=== PATIENT | male | born 1930 | race Caucasian/White ===

== ENCOUNTER 2021-11-09 10:38 | Observation (INO) ==
[2021-11-09] MEDS ORDERED: SODIUM CHLORIDE 0.9% 1000ML 1,000 ML IV SCH (11:00)
[2021-11-09 11:17] LABS: Basophils # (auto) 0.02 K/uL (0-0.2); Basophils % (auto) 0.3 %; Eosinophils # (auto) 0.11 K/uL (0-0.5); Eosinophils % (auto) 1.8 %; Hematocrit (blood only) 33.1 % (42-52); Hemoglobin 10.6 g/dL (14.0-18.0); Immature Granulocytes # (auto) 0.02 K/uL (0.00-0.02); Immature Granulocytes % (auto) 0.3 %; Lymphocytes # (auto) 1.26 K/uL (1.2-3.4); Lymphocytes % (auto) 20.2 %; Mean Corpuscular Hemoglobin 32.2 pg (25-34); Mean Corpuscular Volume 100.6 fL (80-100); Mean Platelet Volume 9.5 fL (7.4-10.4); Monocytes # (auto) 0.62 K/uL (0.11-0.59); Monocytes % (auto) 9.9 %; Neutrophils # (auto) 4.22 K/uL (1.4-6.5); Neutrophils % (auto) 67.5 %; Platelet Count 207 K/uL (130-400); RDW Coefficient of Variation 15.1 % (11.5-14.5); RDW Standard Deviation 54.9 fL (36.4-46.3); Red Blood Count 3.29 M/uL (4.7-6.1); White Blood Count 6.25 K/uL (4.8-10.8)
--- NOTE | 2021-11-09 11:19 | XRay Report ---
XR chest 1V portable CLINICAL HISTORY: weakness. Evaluate cardiopulmonary status COMPARISON STUDY: No previous studies for comparison. TECHNIQUE: 1 view of the chest FINDINGS: Single frontal view of the chest demonstrates the cardiomediastinal silhouette to be within normal li mits. The aorta is atherosclerotic and ectatic. The lungs are clear of alveolar opacities. There is n o evidence for pleural effusion. There is no evidence for vascular congestion. There is no acute osse ous pathology. IMPRESSION: 1. No acute cardiopulmonary disease. ACT 112: Negative or not required by law. Electronically signed by: Major Ames M.D. 11/09/2021 11:17 AM
[2021-11-09 11:30] LABS: Albumin Globulin Ratio 1.1 (0.9-2); Albumin Level 3.5 gm/dl (3.4-5.0); BUN Creatinine Ratio 29.7 (10-20); Bilirubin,Total 0.9 mg/dl (0.2-1.0); Calcium 8.3 mg/dl (8.5-10.1); Est GFR (African American) 67.9 ml/min; Est GFR (Non-African American) 58.6 ml/min; Globulin 3.2 gm/dl (2.5-4.0); Magnesium 2.4 mg/dl (1.7-2.4); Potassium 4.2 mmol/L (3.5-5.1); Total Protein 6.7 gm/dl (6.0-8.3)
[2021-11-09 11:34] LABS: Troponin I High Sensitivity 6.2 pg/ml (0-20)
[2021-11-09 13:12] LABS: Appearance Urine Clear (Clear); Bilirubin Urine Negative (Negative); Blood Urine Negative (Negative); Color Urine Yellow; Glucose Urine UA Negative (Negative); Ketones Urine Negative (Negative); Leukocyte Esterase Urine Negative (Negative); Nitrite Urine Negative (Negative); Protein Urine Negative (Negative); Specific Gravity Urine 1.018 (1.000-1.030); Urobilinogen Urine Negative (Negative); pH Urine 7.5 (4.5-7.5)
--- NOTE | 2021-11-09 13:13 | CT Scan Report ---
CT OF THE HEAD WITHOUT CONTRAST CLINICAL HISTORY: weakness COMPARISON STUDY: No previous studies for comparison. CT DOSE: 537.48 mGy.cm TECHNIQUE: Helical axial images of the head were obtained without IV contrast. Automated exposure con trol was utilized for the study. A dose lowering technique was utilized adhering to the principles o f ALARA. FINDINGS: No acute intracranial hemorrhage, midline shift or mass effect is present. Mild ventricular dilatation is due to atrophy. Basal cisterns are patent. There are nodular axial collections. White matter hypodensity suggests small vessel disease. A 1.7 cm superior left frontal lobe hypodense focus on axial image 23 of 28 is noted. IMPRESSION: 1. No acute intracranial hemorrhage or mass effect. 2. 1.7 cm superior left frontal lobe hypodense focus. This represents a small subacute to chronic inf arct. ACT 112: Negative or not required by law. Electronically signed by: Alex Barrios M.D. 11/09/2021 1:12 PM
--- NOTE | 2021-11-09 13:57 | History & Physical Report ---
Date of Service November 09, 2021 Assessment & Plan (1) Weakness: Plan: Presents with generalized weakness worsening for the last month, low appetite, severe constipation, and urinary frequency and incontinence CT head in the ER with 1.7 cm hypodensity left superior frontal lobe consistent with subacute to chronic infarct With mild anemia, elevated alkaline phosphatase abnormal on laboratory work-up. Urinalysis negative, no fevers, COVID-19 negative. TSH normal Nonfocal neurological exam Did have an episode of syncope 2 weeks ago-could be orthostasis from increased dose of FLomax as orthostatics are borderline positive here Doubtful that the stroke seen on CT head is causing all of his ongoing issues. -Bring in on observation to medical floor with telemetry for arrhythmia monitoring -check brain MRI with contrast -complete stroke workup with CTA head/neck, ECHO with bubble study, HgbA1C, lipid panel, PT/OT consults -treat constipation as below -check PSA, check CT abd/pel-could have prostate CA -check Lyme, B12 (2) Elevated alkaline phosphatase level: Plan: Alkaline phosphatase elevated at 275 Given that he is having worsening urinary symptoms and elevated alkaline phosphatase, it is possible that he has bony disease from metastatic prostate cancer Could also be from hepatic steatosis Check PSA Follow LFTs in the morning Checking liver imaging with CT abd/pel; this will also looks for bony mets (3) Constipation: Plan: severe, ongoing for 1 month which is new for him. Associated with lower abd pain and rectal pain, nausea Having BM q5-6 days iwth help of MOM -checking CT abd/pel -start Miralax bid, senna/docusate once daily, Mag citrate and Bisacodyl SC as needed (4) CVA (cerebral vascular accident): Plan: History of such affecting right sided vision Now here with 1.7 cm left frontal lobe hypodensity on CT head representing subacute to chronic infarct Ensuing stroke work-up as above Continue home aspirin 81mg daily -check CTA H/N, Brain MRI, ECHO -BPs controlled check lipid panel an dchange pravastatin to high intensity statin-atorva 40mg- would only go back to pravastatin if TChol< 100 check A1C (5) Lower urinary tract symptoms: Plan: Worsening for several weeks as per note from primary care physician 1 month ago Could be from BPH versus prostate cancer Check PSA Check CT abd/pel given severe new constipation and urinary sxs Continue tamsulosin Bladder scan and straight cath as needed for PVR>400mL He was scheduled to [facility] on 11/08 for the first time but cancelled due to not feeling well (6) Anemia, macrocytic: Plan: Hemoglobin low at 10.6, MCV high at 100 Check B12 and folate Follow CBC (7) GERD (gastroesophageal reflux disease): Plan: Continue home Pepcid No acute issues (8) HTN (hypertension), benign: Plan: Blood pressures are controlled here Continue home metoprolol (9) Hyperlipidemia: Plan: No acute issues Recommend high intensity statin for history of stroke checking lipid panel in AM (10) Carotid artery stenosis: Plan: Diagnosed after having right sided field of vision loss, CVA unknwon % but no surgery needed -checking CTA neck/head as above (11) Acquired hypothyroidism: Plan: TSH here is normal Continue home levothyroxine Plan: DVT Prophylaxis-SCDs, Lovenox SQ Dispo-bring in for observation to med-tele. PT/OT consults placed. Pt very anxious to get home as soon as possible. Family encouraging him to stay because he has been very resistant to getting things checked out from a medical perspective. He is, however, wanting some answers as to why he is feeling so poorly but has already resolved himself to the fact that his end of life is in the near future (as he has sensed this). DNR/DNI Discussed his care with his and 2 daughters at the bedside History of Present Illness Chief Complaint: Weakness, constipation Primary Care Provider: Jef Menezes, This patient is an 89-year-old male with a history of CVA, BERNARD, HTN, hyperlipidemia, GERD, hypothyroidism, former smoker, lower urinary tract symptoms, and colon adenoma who presents to the ER with generalized weakness for the last several weeks along with worsening urinary incontinence. He was placed on amoxicillin for 5-day course as an outpatient for urinary tract infection by his PCP a few weeks ago, but had no improvement. He then called back in and was prescribed nitrofurantoin over the phone again for continued urinary symptoms. The patient's biggest complaint is severe constipation for the last month-he is only able to have a bowel movement every 5 to 6 days after taking milk of magnesia. There are times when he is straining to have a bowel movement where he has significant lower abdominal pain and gets very nauseated and feels like he will vomit. There has been no blood in the stool no black tarry stools. He also had an episode where he was standing at his bathroom sink and out of nowhere passed out and ended up on the floor. His family had to call EMS to get him back up and he refused admission at that time. He has reported some occasional heart palpitations while laying down in bed, but denies chest pains. He reports that his quality of life has been so terrible for the last month that he presumes he probably has cancer and would welcome if it came. He has not had any fevers or chills. He has had a very low appetite for the last month and is not eating much. In the ER, his laboratory work-up was significant for an elevated alkaline phosphatase at 275, mildly elevated BUN at 33, as well as mild anemia with a hemoglobin of 10.6. His urinalysis was normal and COVID-[address] of the head showed a 1.7 cm hypodense lesion in the left frontal lobe consistent with subacute to chronic infarct. A chest x-ray was normal. A troponin was negative and an ECG showed sinus rhythm with PACs and LAFB unchanged from previous. Vital signs are normal. He will be brought in on observation for further work-up for weakness and stroke, as well as for evaluation of his urinary frequency and severe constipation. Allergies Allergy/AdvReac Type Severity Reaction Status Date / Time No Known Allergies Allergy Unknown Unverified 07/28/10 10:18 Home Medications Medication Instructions Recorded Confirmed Type aspirin 81 mg tablet 81 mg PO DAILY 11/09/21 11/09/21 History levothyroxine 50 mcg tablet 50 mcg PO QAM 11/09/21 11/09/21 History metoprolol succinate 50 mg 50 mg PO QAM 11/09/21 11/09/21 History tablet,extended release 24 hr nitrofurantoin 100 mg PO BID 11/09/21 11/09/21 History monohydrate/macrocrystals 100 mg capsule pravastatin 40 mg tablet 40 mg PO HS 11/09/21 11/09/21 History tamsulosin 0.4 mg capsule 0.8 mg PO DAILY 11/09/21 11/09/21 History Past Med/Surg History Medical History (Updated 11/09/21 @ 15:29 by Anitha Cole MD) Anemia, macrocytic Carotid artery stenosis Colon adenoma CVA (cerebral vascular accident) GERD (gastroesophageal reflux disease) HTN (hypertension), benign Hyperlipidemia Lower urinary tract symptoms Restless leg syndrome Rosacea Spinal stenosis Surgical History History of hernia repair History of tonsillectomy Family History (Updated 11/09/21 @ 15:24 by Anitha Cole MD) Brother Cancer Multiple siblings with stomach cancer Diabetes Mother Cancer Father Prostate cancer Social History (Updated 11/09/21 @ 15:25 by Anitha Cole MD) Smoking Status: Former smoker Tobacco Type: Cigarettes Hx Alcohol Use: No Hx Substance Use: No Preferred Language: Sinhala Feels Safe at Home: Yes Review of Systems Review of Systems: All systems reviewed & are unremarkable except as noted in HPI & below No fevers, no headaches, no changes in vision. Has permanent loss of vision in the right lower field of vision. No chest pains or SOB. No back pain or joint pains. +Fatigue Physical Exam Constitutional: WD/WN, vitals as above Eyes: PERRL, conjunctivae normal, anicteric sclerae EOM intact bilaterally ENMT: external ear and nose normal, oropharynx normal Neck: trachea midline, no thyromegaly Respiratory: normal respiratory effort, lungs clear to auscultation Cardiovascular: RRR, no murmur, no edema Vessels: no carotid bruit Chest (Breasts): Chest: normal inspection of chest Gastrointestinal (Abdomen): normal bowel sounds, soft, nontender, no hepatosplenomegaly Musculoskeletal: Extremities: extremities normal to inspection; no cyanosis and no clubbing Skin: no rashes, warm and dry Neurologic: CN's II-XI intact bilaterally, moves all extremities and awake; + abnormal deep tendon reflexes (1+ throughout), no focal motor deficits (5/5 strength throughout) and not confused Speech / Cognition: normal speech, no expressive aphasia and normal cognition Psychiatric: A+Ox3, euthymic affect Lymphatic: no lymphedema Results & Data Results & Data ([facility]) Vital Signs (Past 12 Hours) Vital Signs Temp Pulse Pulse Resp BP BP Pulse Ox 11/09/21 13:49 79 18 102/61 98 11/09/21 12:48 79 18 103/58 L 98 11/09/21 11:44 86 20 99/60 L 98 11/09/21 10:45 94 H 20 98 11/09/21 10:41 36.7 C 94 H 20 109/66 98 Laboratory Results 11/09/21 11/09/21 11/09/21 Range/Units 12:57 10:45 10:45 WBC (4.8-10.8) K/uL RBC (4.7-6.1) M/uL Hgb (14.0-18.0) g/dL Hct (42-52) % MCV (80-100) fL MCH (25-34) pg MCHC (32-36) g/dL RDW Std Deviation (36.4-46.3) fL RDW Coeff of [place] (11.5-14.5) % Plt Count (130-400) K/uL MPV (7.4-10.4) fL Immature Gran % (Auto) % Neut % (Auto) % Lymph % (Auto) % Forrest % (Auto) % Eos % (Auto) % Baso % (Auto) % Neut # (Auto) (1.4-6.5) K/uL Lymph # (Auto) (1.2-3.4) K/uL Forrest # (Auto) (0.11-0.59) K/uL Eos # (Auto) (0-0.5) K/uL Baso # (Auto) (0-0.2) K/uL Immature Gran # (Auto) (0.00-0.02) K/uL Sodium (136-145) mmol/L Potassium (3.5-5.1) mmol/L Chloride (98-107) mmol/L Carbon Dioxide (21-32) mmol/L Anion Gap (3-11) BUN (6-23) mg/dl Creatinine (0.6-1.4) mg/dl Est Cr Clr Drug Dosing ml/min Est GFR ( Amer) ml/min Est GFR (Non-Af Amer) ml/min BUN/Creatinine Ratio (10-20) Glucose (70-99(Fasting)) mg/dl Calcium (8.5-10.1) mg/dl Magnesium (1.7-2.4) mg/dl Total Bilirubin (0.2-1.0) mg/dl AST (13-39) U/L ALT (7-52) U/L Alkaline Phosphatase (34-104) U/L Troponin I High Sens (0-20) pg/ml Total Protein (6.0-8.3) gm/dl Albumin (3.4-5.0) gm/dl Globulin (2.5-4.0) gm/dl Albumin/Globulin Ratio (0.9-2) TSH 2.772 (0.300-4.500) uIu/ml Urine Color Yellow Urine Appearance Clear (Clear) Urine pH 7.5 (4.5-7.5) Ur Specific [place] 1.018 (1.000-1.030) Urine Protein Negative (Negative) Urine Glucose (UA) Negative (Negative) Urine Ketones Negative (Negative) Urine Blood Negative (Negative) Urine Nitrite Negative (Negative) Urine Bilirubin Negative (Negative) Urine Urobilinogen Negative (Negative) Ur Leukocyte Esterase Negative (Negative) SARS-CoV-2, RNA, NAAT NEGATIVE (NEGATIVE) 11/09/21 11/09/21 Range/Units 10:45 10:45 WBC 6.25 (4.8-10.8) K/uL RBC 3.29 L (4.7-6.1) M/uL Hgb 10.6 L (14.0-18.0) g/dL Hct 33.1 L (42-52) % MCV 100.6 H (80-100) fL MCH 32.2 (25-34) pg MCHC 32.0 (32-36) g/dL RDW Std Deviation 54.9 H (36.4-46.3) fL RDW Coeff of [place] 15.1 H (11.5-14.5) % Plt Count 207 (130-400) K/uL MPV 9.5 (7.4-10.4) fL Immature Gran % (Auto) 0.3 % Neut % (Auto) 67.5 % Lymph % (Auto) 20.2 % Forrest % (Auto) 9.9 % Eos % (Auto) 1.8 % Baso % (Auto) 0.3 % Neut # (Auto) 4.22 (1.4-6.5) K/uL Lymph # (Auto) 1.26 (1.2-3.4) K/uL Forrest # (Auto) 0.62 H (0.11-0.59) K/uL Eos # (Auto) 0.11 (0-0.5) K/uL Baso # (Auto) 0.02 (0-0.2) K/uL Immature Gran # (Auto) 0.02 (0.00-0.02) K/uL Sodium 137 (136-145) mmol/L Potassium 4.2 (3.5-5.1) mmol/L Chloride 105 (98-107) mmol/L Carbon Dioxide 25 (21-32) mmol/L Anion Gap 7 (3-11) BUN 33 H (6-23) mg/dl Creatinine 1.11 (0.6-1.4) mg/dl Est Cr Clr Drug Dosing 51.0 ml/min Est GFR ( Amer) 67.9 ml/min Est GFR (Non-Af Amer) 58.6 ml/min BUN/Creatinine Ratio 29.7 H (10-20) Glucose 114 H (70-99(Fasting)) mg/dl Calcium 8.3 L (8.5-10.1) mg/dl Magnesium 2.4 (1.7-2.4) mg/dl Total Bilirubin 0.9 (0.2-1.0) mg/dl AST 33 (13-39) U/L ALT 41 (7-52) U/L Alkaline Phosphatase 275 H (34-104) U/L Troponin I High Sens 6.2 (0-20) pg/ml Total Protein 6.7 (6.0-8.3) gm/dl Albumin 3.5 (3.4-5.0) gm/dl Globulin 3.2 (2.5-4.0) gm/dl Albumin/Globulin Ratio 1.1 (0.9-2) TSH (0.300-4.500) uIu/ml Urine Color Urine Appearance (Clear) Urine pH (4.5-7.5) Ur Specific [place] (1.000-1.030) Urine Protein (Negative) Urine Glucose (UA) (Negative) Urine Ketones (Negative) Urine Blood (Negative) Urine Nitrite (Negative) Urine Bilirubin (Negative) Urine Urobilinogen (Negative) Ur Leukocyte Esterase (Negative) SARS-CoV-2, RNA, NAAT (NEGATIVE) Diagnostic Findings Chest X-Ray 11/09/21 10:58 XR chest 1V portable CLINICAL HISTORY: weakness. Evaluate cardiopulmonary status COMPARISON STUDY: No previous studies for comparison. TECHNIQUE: 1 view of the chest FINDINGS: Single frontal view of the chest demonstrates the cardiomediastinal silhouette to be within normal limits. The aorta is atherosclerotic and ectatic. The lungs are clear of alveolar opacities. There is no evidence for pleural effusion. There is no evidence for vascular congestion. There is no acute osseous pathology. IMPRESSION: 1. No acute cardiopulmonary disease. ACT 112: Negative or not required by law. Electronically signed by: Major Ames M.D. 11/09/2021 11:[address] 11/09/21 12:36 CT OF THE HEAD WITHOUT CONTRAST CLINICAL HISTORY: weakness COMPARISON STUDY: No previous studies for comparison. CT DOSE: 537.48 mGy.cm TECHNIQUE: Helical axial images of the head were obtained without IV contrast. Automated exposure control was utilized for the study. A dose lowering technique was utilized adhering to the principles of ALARA. FINDINGS: No acute intracranial hemorrhage, midline shift or mass effect is present. Mild ventricular dilatation is due to atrophy. Basal cisterns are patent. There are nodular axial collections. White matter hypodensity suggests small vessel disease. A 1.7 cm superior left frontal lobe hypodense focus on axial image 23 of 28 is noted. IMPRESSION: 1. No acute intracranial hemorrhage or mass effect. 2. 1.7 cm superior left frontal lobe hypodense focus. This represents a small subacute to chronic infarct. ACT 112: Negative or not required by law. Electronically signed by: Alex Barrios M.D. 11/09/2021 1:12 PM ECG Additional Comments: ECG on 11/09/2021 at 10:41 AM with sinus rhythm with PACs, rate 97, left anterior fascicular block, nonspecific ST abnormality in anterior leads, unchanged from previous Code Status & VTE Plan Code Status DNR/DNI VTE Prophylaxis Plan VTE Prophylaxis will be ordered: Yes PG Care Time/CCT Total # of Minutes Spent Total Time Spent with Patient: Total time spent is greater than 50% in coordination of care (as documented) at patient's floor/unit and/or counseling patient: Coding Level of Care Code INT OBSERVATION CARE 70M LVL 3 Diagnoses Weakness R53.1 Lower urinary tract symptoms R39.9 GERD (gastroesophageal reflux disease) K21.9 HTN (hypertension), benign I10 Hyperlipidemia E78.5 Carotid artery stenosis I65.29 Acquired hypothyroidism E03.9 CVA (cerebral vascular accident) I63.9 CVA mechanism: unspecified Elevated alkaline phosphatase level R74.8 Anemia, macrocytic D53.9 Constipation K59.00 (1) CVA (cerebral vascular accident) CVA mechanism: unspecified Qualified Code(s): I63.9 - Cerebral infarction, unspecified
--- NOTE | 2021-11-09 14:01 | Emergency Department Note ---
Impression & Plan CVA (cerebral vascular accident), Weakness, Dizziness, Urinary incontinence ED Provider Note CHIEF COMPLAINT: Weakness, urinary incontinence, decreased oral intake HISTORY OF PRESENT ILLNESS: This 89-year-old male patient presents to the emergency department with complaints of generalized weakness, imbalance, urinary incontinence and a lack of eating per his . This has been a gradual decline over the last several weeks. His states he was placed on amoxicillin for UTI through his primary care. She believes this has helped the urine somewhat but has not completely resolved. She believes that he is excessively urinating. Patient denies any recent falls but did experience chest pain 2 days ago. He has not experienced that pain since. He is relatively inactive and denies any exertion. He denies any shortness of breath, fevers, chills, vomiting or diarrhea. REVIEW OF SYSTEMS: A review of systems was performed with positives and pertinent negatives listed in the history of present illness. 10 systems were reviewed and are otherwise negative. ALLERGIES: see below MEDICATIONS: see below PMH: see below SOCIAL HISTORY: see below DDx:Infection, dehydration, metabolic abnormality, hypo/hyperglycemia, electrolyte disturbance, anemia, hypoxia, cardiac sources, intracerebral event, toxicologic, neurologic, as well as other pathologies. PHYSICAL EXAM: Vital signs reviewed. General: Elderly, chronically ill-appearing 89-year-old male in no significant distress. HEENT: No scleral icterus, PERRLA, neck supple. Atraumatic. Moist mucous membranes Cardiovascular: Regular rate and rhythm, no extra sounds. Pulmonary: Clear to auscultation bilaterally, normal work of breathing. Abdomen: Soft, nontender, nondistended, positive bowel sounds. Musculoskeletal: Atraumatic, no peripheral edema. Neurologic: Patient awake alert and oriented x 3, speech is clear, hard of hearing. Cranial nerves II through XII are grossly intact. Moves upper extremities symmetrically. Equal medical administrative specialist strength bilaterally. Skin: Warm, dry, no rash EMERGENCY DEPARTMENT COURSE/MDM: This patient was evaluated and appeared to be in no significant distress. IV access was obtained and laboratory work was drawn. The patient was placed on a cyanide case hardener and noted to be in a normal sinus rhythm. Laboratory work is fairly reassuring. He is noted to be mildly anemic with a hemoglobin of 10. Head CT was performed and is significant for a new 1.7 cm frontal lobe subacute to chronic infarct. This may explain the patient's change in behavior and dizziness. Patient states he does have a remote history of previous stroke that is responsible for some vision loss in the right eye. Patient has tested COVID-negative. UA is negative for infection. Case was discussed with the hospitalist service will evaluate the patient for admission and further management. Patient and family are aware of the plan and agreed. MONITORING: An order for cardiac monitoring was placed and the patient is noted to be in a NSR at 94 beats per minute. RADIOLOGY: See below EKG: Sinus rhythm with PACs at 97 bpm. Left anterior fascicular block. QTc is 457. When compared to 07/28/2010, PACs are new. DISPOSITION:Admit Past Med/Surg History Medical History (Updated 11/09/21 @ 14:07 by Anitha Cole MD) Anemia, macrocytic Carotid artery stenosis Colon adenoma CVA (cerebral vascular accident) GERD (gastroesophageal reflux disease) HTN (hypertension), benign Hyperlipidemia Lower urinary tract symptoms Restless leg syndrome Rosacea Spinal stenosis Surgical History History of hernia repair History of tonsillectomy Family History (Updated 11/09/21 @ 14:03 by Anitha Cole MD) Brother Cancer Diabetes Mother Cancer Father Prostate cancer Social History (Updated 11/09/21 @ 14:03 by Anitha Cole MD) Smoking Status: Former smoker Tobacco Type: Cigarettes Age Quit Using Tobacco: 89; Hx Alcohol Use: No Hx Substance Use: No Preferred Language: Romanian Feels Safe at Home: Yes Allergies Allergies Allergy/AdvReac Type Severity Reaction Status Date / Time No Known Allergies Allergy Unknown Unverified 07/28/10 10:18 Home Meds Home Medications Medication Instructions Recorded Confirmed Ranitidine (Zantac) 300 mg PO HS #0 07/28/10 Tamsulosin Hcl (Flomax *) 0.4 mg PO DAILY #0 07/28/10 Tetracycline (Sumycin *) 500 mg PO DAILY #0 07/28/10 Results & Data (ED) Vital Signs Vital Signs - 24 hr 11/09/21 10:41 11/09/21 10:45 11/09/21 11:43 Temperature 36.7 C Temperature Source Oral Pulse Rate - Lying 83 Pulse Rate - Sitting 86 Pulse Rate - Standing 90 Pulse Rate 94 H 94 H Pulse Rate [Apical] Pulse Rhythm Regular Regular Pulse Rhythm [Apical] Pulse Strength Normal Pulse Strength [Apical] Respiratory Rate 20 20 Respiratory Effort / Characteristics Non-Labored Spontaneous Respiratory Depth Normal Respiratory Pattern Regular Blood Pressure - Lying 109/63 Blood Pressure - Sitting 99/60 L Blood Pressure- Standing 90/63 L Blood Pressure 109/66 Blood Pressure [Right Arm] Blood Pressure Mean 80 Blood Pressure Mean [Right Arm] Blood Pressure Position Sitting Blood Pressure Position [Right Arm] Pulse Oximetry 98 98 Oxygen Delivery Method Room Air Room Air Sepsis Recent Fever Within 48 Hours No Sepsis New/Unexplained Change in Mental Status No Sepsis Action Taken by Nursing No Action Required 11/09/21 11:44 11/09/21 12:48 11/09/21 13:49 Temperature Temperature Source Pulse Rate - Lying Pulse Rate - Sitting Pulse Rate - Standing Pulse Rate Pulse Rate [Apical] 86 79 79 Pulse Rhythm Pulse Rhythm [Apical] Regular Regular Regular Pulse Strength Pulse Strength [Apical] Normal Normal Normal Respiratory Rate 20 18 18 Respiratory Effort / Characteristics Non-Labored Spontaneous Non-Labored Spontaneous Non-Labored Spontaneous Respiratory Depth Normal Normal Normal Respiratory Pattern Regular Regular Regular Blood Pressure - Lying Blood Pressure - Sitting Blood Pressure- Standing Blood Pressure Blood Pressure [Right Arm] 99/60 L 103/58 L 102/61 Blood Pressure Mean Blood Pressure Mean [Right Arm] 73 73 74 Blood Pressure Position Blood Pressure Position [Right Arm] Sitting Sitting Sitting Pulse Oximetry 98 98 98 Oxygen Delivery Method Room Air Room Air Room Air Sepsis Recent Fever Within 48 Hours Sepsis New/Unexplained Change in Mental Status Sepsis Action Taken by Long Term Medications Current Medication List: was personally reviewed by me Laboratory Data Attestation: I reviewed the patient's lab results. Result diagrams: 11/09/21 10:45 11/09/21 10:45 Lab Results 11/09/21 11/09/21 11/09/21 Range/Units 10:45 10:45 10:45 WBC 6.25 (4.8-10.8) K/uL RBC 3.29 L (4.7-6.1) M/uL Hgb 10.6 L (14.0-18.0) g/dL Hct 33.1 L (42-52) % MCV 100.6 H (80-100) fL MCH 32.2 (25-34) pg MCHC 32.0 (32-36) g/dL RDW Std Deviation 54.9 H (36.4-46.3) fL RDW Coeff of [place] 15.1 H (11.5-14.5) % Plt Count 207 (130-400) K/uL MPV 9.5 (7.4-10.4) fL Immature Gran % (Auto) 0.3 % Neut % (Auto) 67.5 % Lymph % (Auto) 20.2 % [place]wood % (Auto) 9.9 % Eos % (Auto) 1.8 % Baso % (Auto) 0.3 % Neut # (Auto) 4.22 (1.4-6.5) K/uL Lymph # (Auto) 1.26 (1.2-3.4) K/uL Haywood # (Auto) 0.62 H (0.11-0.59) K/uL Eos # (Auto) 0.11 (0-0.5) K/uL Baso # (Auto) 0.02 (0-0.2) K/uL Immature Gran # (Auto) 0.02 (0.00-0.02) K/uL Sodium 137 (136-145) mmol/L Potassium 4.2 (3.5-5.1) mmol/L Chloride 105 (98-107) mmol/L Carbon Dioxide 25 (21-32) mmol/L Anion Gap 7 (3-11) BUN 33 H (6-23) mg/dl Creatinine 1.11 (0.6-1.4) mg/dl Est Cr Clr Drug Dosing 51.0 ml/min Est GFR ( Amer) 67.9 ml/min Est GFR (Non-Af Amer) 58.6 ml/min BUN/Creatinine Ratio 29.7 H (10-20) Glucose 114 H (70-99(Fasting)) mg/dl Calcium 8.3 L (8.5-10.1) mg/dl Magnesium 2.4 (1.7-2.4) mg/dl Total Bilirubin 0.9 (0.2-1.0) mg/dl AST 33 (13-39) U/L ALT 41 (7-52) U/L Alkaline Phosphatase 275 H (34-104) U/L Troponin I High Sens 6.2 (0-20) pg/ml Total Protein 6.7 (6.0-8.3) gm/dl Albumin 3.5 (3.4-5.0) gm/dl Globulin 3.2 (2.5-4.0) gm/dl Albumin/Globulin Ratio 1.1 (0.9-2) TSH 2.772 (0.300-4.500) uIu/ml Urine Color Urine Appearance (Clear) Urine pH (4.5-7.5) Ur Specific Yul[place] (1.000-1.030) Urine Protein (Negative) Urine Glucose (UA) (Negative) Urine Ketones (Negative) Urine Blood (Negative) Urine Nitrite (Negative) Urine Bilirubin (Negative) Urine Urobilinogen (Negative) Ur Leukocyte Esterase (Negative) SARS-CoV-2, RNA, NAAT (NEGATIVE) 11/09/21 11/09/21 Range/Units 10:45 12:57 WBC (4.8-10.8) K/uL RBC (4.7-6.1) M/uL Hgb (14.0-18.0) g/dL Hct (42-52) % MCV (80-100) fL MCH (25-34) pg MCHC (32-36) g/dL RDW Std Deviation (36.4-46.3) fL RDW Coeff of Ventura (11.5-14.5) % Plt Count (130-400) K/uL MPV (7.4-10.4) fL Immature Gran % (Auto) % Neut % (Auto) % Lymph % (Auto) % Haywood % (Auto) % Eos % (Auto) % Baso % (Auto) % Neut # (Auto) (1.4-6.5) K/uL Lymph # (Auto) (1.2-3.4) K/uL Haywood # (Auto) (0.11-0.59) K/uL Eos # (Auto) (0-0.5) K/uL Baso # (Auto) (0-0.2) K/uL Immature Gran # (Auto) (0.00-0.02) K/uL Sodium (136-145) mmol/L Potassium (3.5-5.1) mmol/L Chloride (98-107) mmol/L Carbon Dioxide (21-32) mmol/L Anion Gap (3-11) BUN (6-23) mg/dl Creatinine (0.6-1.4) mg/dl Est Cr Clr Drug Dosing ml/min Est GFR ( Amer) ml/min Est GFR (Non-Af Amer) ml/min BUN/Creatinine Ratio (10-20) Glucose (70-99(Fasting)) mg/dl Calcium (8.5-10.1) mg/dl Magnesium (1.7-2.4) mg/dl Total Bilirubin (0.2-1.0) mg/dl AST (13-39) U/L ALT (7-52) U/L Alkaline Phosphatase (34-104) U/L Troponin I High Sens (0-20) pg/ml Total Protein (6.0-8.3) gm/dl Albumin (3.4-5.0) gm/dl Globulin (2.5-4.0) gm/dl Albumin/Globulin Ratio (0.9-2) TSH (0.300-4.500) uIu/ml Urine Color Yellow Urine Appearance Clear (Clear) Urine pH 7.5 (4.5-7.5) Ur Specific [place] 1.018 (1.000-1.030) Urine Protein Negative (Negative) Urine Glucose (UA) Negative (Negative) Urine Ketones Negative (Negative) Urine Blood Negative (Negative) Urine Nitrite Negative (Negative) Urine Bilirubin Negative (Negative) Urine Urobilinogen Negative (Negative) Ur Leukocyte Esterase Negative (Negative) SARS-CoV-2, RNA, NAAT NEGATIVE (NEGATIVE) Administered Medications Sodium Chloride (Nss 1000ml) 1,000 mls @ 125 mls/hr IV .Q8H NORA Stop: 11/09/21 18:59 Last Admin: 11/09/21 11:43 Dose: 125 mls/hr Documented by: [id number] Imaging Data Radiologist's Impression: Chest X-Ray 11/09/21 10:58 XR chest 1V portable CLINICAL HISTORY: weakness. Evaluate cardiopulmonary status COMPARISON STUDY: No previous studies for comparison. TECHNIQUE: 1 view of the chest FINDINGS: Single frontal view of the chest demonstrates the cardiomediastinal silhouette to be within normal limits. The aorta is atherosclerotic and ectatic. The lungs are clear of alveolar opacities. There is no evidence for pleural effusion. There is no evidence for vascular congestion. There is no acute osseous pathology. IMPRESSION: 1. No acute cardiopulmonary disease. ACT 112: Negative or not required by law. Electronically signed by: Major Ames M.D. 11/09/2021 11:[address] 11/09/21 12:36 CT OF THE HEAD WITHOUT CONTRAST CLINICAL HISTORY: weakness COMPARISON STUDY: No previous studies for comparison. CT DOSE: 537.48 mGy.cm TECHNIQUE: Helical axial images of the head were obtained without IV contrast. Automated exposure control was utilized for the study. A dose lowering technique was utilized adhering to the principles of ALARA. FINDINGS: No acute intracranial hemorrhage, midline shift or mass effect is present. Mild ventricular dilatation is due to atrophy. Basal cisterns are patent. There are nodular axial collections. White matter hypodensity suggests small vessel disease. A 1.7 cm superior left frontal lobe hypodense focus on axial image 23 of 28 is noted. IMPRESSION: 1. No acute intracranial hemorrhage or mass effect. 2. 1.7 cm superior left frontal lobe hypodense focus. This represents a small subacute to chronic infarct. ACT 112: Negative or not required by law. Electronically signed by: Alex Barrios M.D. 11/09/2021 1:12 PM Blood Pressure Blood Pressure Findings: Normal blood pressure Blood Pressure Disposition: did not require urgent referral Discharge Plan Visit Data Chief Complaint: Weakness Stated Complaint: WEAKNESS, TIRED ED Provider: Maureen Marie Discharge Problem: CVA (cerebral vascular accident), Weakness, Dizziness, Urinary incontinence Patient Disposition: Admitted As Inpatient Forms [facility] Prescriptions Prescriptions: No Action pravastatin 40 mg tablet 40 mg PO HS RF: 0 metoprolol succinate 50 mg tablet extended release 24 hr 50 mg PO QAM RF: 0 tamsulosin 0.4 mg capsule 0.8 mg PO DAILY RF: 0 levothyroxine 50 mcg tablet 50 mcg PO QAM RF: 0 aspirin 81 mg Tablet 81 mg PO DAILY RF: 0 nitrofurantoin monohyd/m-cryst 100 mg capsule 100 mg PO BID RF: 0 Referrals Referrals: Jef Menezes DO [Primary Care Provider] - Discharge Problem: CVA (cerebral vascular accident) Qualifiers: CVA mechanism: unspecified Qualified Code(s): I63.9 - Cerebral infarction, unspecified Urinary incontinence Qualifiers: Urinary Incontinence type: other incontinence Qualified Code(s): N39.498 - Oth er specified urinary incontinence
[2021-11-09] MEDS ORDERED: OPTIRAY 320 125ml IV ONE (15:38)
[2021-11-09 15:39] LABS: Folate (Folic Acid) 15.3 ng/ml (>5.38)
--- NOTE | 2021-11-09 15:58 | CT Scan Report ---
CT ANGIOGRAPHY OF THE NECK WITH CONTRAST CLINICAL HISTORY: Cerebrovascular accident. COMPARISON STUDY: No previous studies for comparison. Technique: CT angiography of the carotid and vertebral arteries was obtained using Optiray and 3D rec onstruction on an independent workstation. NASCET criteria was utilized. Automated exposure control was utilized for the study. A dose lowering technique was utilized adhering to the principles of ALA RA. CT DOSE: 1270.78 mGy.cm Findings: Apparent outpouching of contrast of the proximal right internal carotid artery is noted. Th is suggests extensive ulcerated plaque. There is severe long segment stenosis of the proximal right i nternal carotid artery of greater than 95%. The entire cervical right internal carotid artery is dimi nutive and irregular. The bilateral common carotid arteries are patent. There is moderate plaque with in the proximal left internal carotid artery. There is a shelf like filling defect within the proxima l left internal carotid artery without significant stenosis. There is moderate to severe severe steno sis at the origin of the right vertebral artery. There is mild stenosis at the origin the left verteb ral artery. Multifocal sclerosis is noted within visualized skeletal structures. There are multiple enlarged left supraclavicular lymph nodes. Index node measures 1.4 x 1.2 cm. IMPRESSION: 1. Severe stenosis of the proximal right internal carotid artery of greater than 95%. The entire cerv ical right internal carotid artery is diminutive and irregular. Extensive ulcerated plaque within the proximal right internal carotid artery, as described above. 2. Shelf-like defect within the proximal left internal carotid artery. This could reflect a carotid w eb. No significant stenosis of this vessel. 3. Moderate stenosis to severe stenosis at the origin of the right vertebral artery. 4. Multifocal sclerosis within visualized skeletal structures. This suggest blastic metastatic diseas e. 5. Multiple clustered pathologically enlarged left supraclavicular lymph node. This may reflect isidoro spread of disease. ACT 112: Negative or not required by law. Electronically signed by: Alex Barrios M.D. 11/09/2021 3:55 PM
--- NOTE | 2021-11-09 16:05 | CT Scan Report ---
CT abd pelvis IV con only CLINICAL HISTORY: constipation,urinary frequency,weakness,abd pain TECHNIQUE: Helical axial images of the abdomen and pelvis were obtained and displayed. Automated dose lowering techniques and/or adjustment according to patient size were utilized for this exam. This e xam was performed with intravenous contrast. COMPARISON: None available at the time of this dictation. FINDINGS: Lower chest: Bibasilar atelectasis versus scarring is seen. Liver: Multiple hepatic cysts are seen. Gallbladder and biliary tree: Layering radiodense material is seen in the dependent portion of the li vanesa representing sludge. No intra- or extrahepatic biliary ductal dilation. Pancreas: Unremarkable, no focal lesions. Spleen: Unremarkable. Adrenals: Unremarkable. Kidneys and ureters: Multiple cysts are seen. Bilateral hydronephrosis and hydroureter is seen withou t evidence of obstruction. Bladder: Unremarkable. Reproductive organs: Unremarkable. Bowel: Diverticulosis is seen without evidence of diverticulitis. The appendix is normal. Lymph nodes Retroperitoneal: Multiple enlarged retroperitoneal lymph nodes are seen measuring up to 15 mm in shor t axis. Mesenteric: Unremarkable. Pelvic: Bilateral pelvic lymph nodes are seen, measuring up to 13 mm in the external iliac station. Peritoneum: Normal. Vessels: Atherosclerotic calcifications are seen. Abdominal wall: Unremarkable. Bones: Degenerative changes in the visualized spine. Extensive ill-defined sclerotic foci are seen th roughout the skeleton. IMPRESSION: 1. Extensive lymphadenopathy and sclerotic foci in the skeleton compatible with metastatic prostate cancer in this patient with markedly elevated PSA. 2. Bilateral hydronephrosis/hydroureter, of uncertain etiology. Of note, the patient was recently tr eated for urinary tract infection. ACT 112: Negative or not required by law. Electronically signed by: Oliver Dozier M.D. 11/09/2021 4:01 PM
--- NOTE | 2021-11-09 16:05 | CT Scan Report ---
CT angio head w con CLINICAL HISTORY: CVA COMPARISON STUDY: No previous studies for comparison. CT DOSE: TECHNIQUE: CT Angio of the brain was performed.followed by image post processing with coronal, and s agittal MIP reformats. Contrast Volume: Optiray 320, 120 ml FINDINGS: Vascular findings: There is marked decrease in caliber of the right internal carotid artery when comp ared to the left. However, there is normal enhancement noted within the anterior, middle and posteri or cerebral arteries. Nonvascular findings: The ventricles are moderately dilated bilaterally. There is mild cerebral corti jonh atrophy and decreased attenuation in the periventricular white matter representing remote small v essel disease. There is no evidence for an acute infarct or cerebral edema. IMPRESSION: 1. Marked asymmetric decrease in caliber of the right internal carotid artery. 2. No evidence for stenosis or occlusion within the cerebral arteries. 3. Cerebral cortical atrophy and evidence for remote small vessel disease. If symptoms persist, MRI w ould be the study of choice for further evaluation. ACT 112: Negative or not required by law. Electronically signed by: Major Ames M.D. 11/09/2021 4:03 PM
[2021-11-09 17:07] LABS: Lyme Ab IgG w/WB Rflx Negative (Negative); Lyme Ab IgM w/WB Rflx Negative (Negative)
[2021-11-09] MEDS ORDERED: bisacodyL 10 MG SUPP PR PRN (17:25)
[2021-11-09] MEDS ORDERED: ALUMINUM/MAGNESIUM SUSP 30 ML UDC PO PRN (17:25)
[2021-11-09] MEDS ORDERED: ACETAMINOPHEN 325 MG TAB PO PRN (17:25)
[2021-11-09] MEDS ORDERED: ONDANSETRON INJ 2 MG/ML 2 ML VIAL IV PRN (17:25)
[2021-11-09] MEDS ORDERED: MAGNESIUM CITRATE 296 ML/BTL PO PRN (17:25)
[2021-11-09] MEDS ORDERED: diphenhydrAMINE Capsule 25 MG CAP PO PRN (17:25)
[2021-11-09] MEDS ORDERED: ENOXAPARIN INJ 40 MG/0.4 ML SYR SQ SCH (18:00)
[2021-11-09] MEDS: DOCUSATE SODIUM/SENNA 50/8.6MG TAB PO SCH (22:00)
[2021-11-09] MEDS: POLYETHYLENE (MIRALAX) 17 GM PACK PO SCH (22:00)
[2021-11-09] MEDS ORDERED: GADOBUTROL 65ML VIAL IV ONE (22:54)
--- NOTE | 2021-11-10 07:43 | Electrocardiogram Report ---
Test Reason : Blood Pressure : / mmHG Vent. Rate : 097 BPM Atrial Rate : 097 BPM P-R Int : 166 ms QRS Dur : 098 ms QT Int : 360 ms P-R-T Axes : 016 -55 028 degrees QTc Int : 457 ms Poor data quality, interpretation may be adversely affected Sinus rhythm with Premature atrial complexes Left anterior fascicular block Nonspecific ST abnormality Abnormal ECG When compared with ECG of 28-JUL-2010 10:28, Premature atrial complexes are now Present Confirmed by Denis Carrasco ([id number]) on 11/10/2021 7:43:12 AM Referred By: SELF Confirmed By:Denis Carrasco
[2021-11-10 07:56] LABS: Basophils # (auto) 0.01 K/uL (0-0.2); Basophils % (auto) 0.2 %; Eosinophils # (auto) 0.09 K/uL (0-0.5); Eosinophils % (auto) 1.9 %; Hematocrit (blood only) 29.8 % (42-52); Hemoglobin 9.4 g/dL (14.0-18.0); Immature Granulocytes # (auto) 0.04 K/uL (0.00-0.02); Immature Granulocytes % (auto) 0.9 %; Lymphocytes # (auto) 0.99 K/uL (1.2-3.4); Lymphocytes % (auto) 21.3 %; Mean Corpuscular Hemoglobin 31.1 pg (25-34); Mean Corpuscular Hgb Conc 31.5 g/dL (32-36); Mean Corpuscular Volume 98.7 fL (80-100); Mean Platelet Volume 9.2 fL (7.4-10.4); Monocytes # (auto) 0.49 K/uL (0.11-0.59); Monocytes % (auto) 10.5 %; Neutrophils # (auto) 3.03 K/uL (1.4-6.5); Neutrophils % (auto) 65.2 %; Platelet Count 180 K/uL (130-400); RDW Coefficient of Variation 15.2 % (11.5-14.5); RDW Standard Deviation 54.5 fL (36.4-46.3); Red Blood Count 3.02 M/uL (4.7-6.1); White Blood Count 4.65 K/uL (4.8-10.8)
[2021-11-10] MEDS: DOCUSATE SODIUM/SENNA 50/8.6MG TAB PO SCH (08:04)
[2021-11-10] MEDS: POLYETHYLENE (MIRALAX) 17 GM PACK PO SCH (08:05)
[2021-11-10 08:20] LABS: Albumin Globulin Ratio 1.1 (0.9-2); Albumin Level 3.1 gm/dl (3.4-5.0); BUN Creatinine Ratio 26.9 (10-20); Bilirubin,Total 0.8 mg/dl (0.2-1.0); Chol HDL Ratio 4.3 (0-5); Creatinine Clr Calc Pharmacy 52.4 ml/min; Est GFR (African American) 70.2 ml/min; Est GFR (Non-African American) 60.5 ml/min; Globulin 2.7 gm/dl (2.5-4.0); Potassium 4.2 mmol/L (3.5-5.1); Total Protein 5.8 gm/dl (6.0-8.3)
--- NOTE | 2021-11-10 08:44 | Magnetic Resonance Report ---
MRI OF THE BRAIN WITHOUT AND WITH IV CONTRAST CLINICAL HISTORY: stroke seen on CT head. Weakness. COMPARISON STUDY: Head CT and CTA of the head November 09, 2021. TECHNIQUE: Utilizing a 1.5 Noni magnet and dedicated coil, multiplanar, multiecho imaging of the br ain was performed pre and postcontrast administration. IV administration of 8.5 mL of Gadavist contr ast was uneventful. Thin cut T1 post contrast imaging was performed. FINDINGS: There are no foci of restricted diffusion to suggest acute infarct. No acute intracranial h emorrhage, midline shift or mass effect is present. There is no intracranial mass or pathologic enhan cement. A small old infarct, measuring 1.7 cm, within the posterior left frontal lobe corresponds to the finding on head CT of November 09, 2021. Moderate to marked atrophy is noted. Old lacunar infarct wit hin left caudate nucleus is noted. A 5 mm hypointense focus within the right middle cerebellar pedunc le is suggestive of old blood products. Asymmetric diminished caliber of the flow-void for the visual ized right internal carotid artery is better depicted on CTA of November 09, 2021. This vessel is diminut laquita. Marrow replacement within the C2 vertebral body is noted on the sagittal T1 sequence. No parench ymal metastases are identified. IMPRESSION: 1. No acute infarcts. Old 1.7 cm left frontal lobe infarct, as shown on head CT of November 09, 2021. 2. Marrow replacement within the C2 vertebra consistent with metastatic disease. No parenchymal metas tases. 3. Cerebral atrophy. ACT 112: Negative or not required by law. Electronically signed by: Alex Barrios M.D. 11/10/2021 8:42 AM
[2021-11-10] MEDS ORDERED: ASPIRIN 81 MG ECTAB PO SCH (09:00)
[2021-11-10] MEDS ORDERED: TAMSULOSIN HCL 0.4 MG CAP PO SCH (09:00)
[2021-11-10] MEDS ORDERED: LEVOTHYROXINE SODIUM 50 MCG TABLET PO SCH (09:00)
[2021-11-10] MEDS ORDERED: ATORVASTATIN 40 MG TAB PO SCH (09:00)
[2021-11-10] MEDS ORDERED: METOPROLOL SUCC 50MG EXT REL TAB PO SCH (09:00)
[2021-11-10 09:05] LABS: Estimated Average Glucose 123 mg/dl; Hemoglobin A1C 5.9 % (4.5-5.6)
--- NOTE | 2021-11-10 09:07 | Hospitalist Progress Note ---
Date of Service November 10, 2021 Assessment & Plan Admission and Anticipated Discharge Date Admission Date: November 09, 2021 Results & Data Results & Data ([facility]) Vital Signs (Past 12 Hours) Vital Signs Temp Pulse Pulse Resp BP Pulse Ox 11/10/21 07:53 36.9 C 80 18 132/78 95 11/10/21 07:21 79 11/10/21 03:23 36.9 C 82 18 115/70 99 11/09/21 23:19 36.7 C 91 H 18 129/70 98 11/09/21 22:20 86
--- NOTE | 2021-11-10 10:33 | Urology Consultation ---
Date of Consultation November 10, 2021 Assessment & Plan (1) Prostate cancer: (2) Elevated PSA: (3) Urinary incontinence: 89yo M who presented with generalized weakness worsening for the last month, decreased appetite, severe constipation, and urinary frequency and incontinence and found to have metastatic prostate CA as evidenced by a severely elevated PSA at > 1420, bony mets and lymphadenopathy on imaging. Also found to have bilateral hydronephrosis on CT imaging. - Plan of care and imaging reviewed with Dr. Rizzo, on-call urologist. - CTAP reviewed -Extensive lymphadenopathy and sclerotic foci in the skeleton compatible with metastatic prostate cancer, Bilateral hydronephrosis/hydroureter without evidence of obstruction. - Afebrile, hemodynamically stable. - Labs reviewed - White count 4.65, Creatinine 1.08. - No acute intervention warranted at this time. - Voiding spontaneously, continue to monitor. Bladder scan and straight cath as needed for PVR>400mL. - Continue supportive care. - Discussed potential treatment options for prostate cancer including androgen deprivation therapy. - Oncology consultation pending. - Pt has adamantly expressed that he does not wish to pursue any treatment for prostate cancer. - See attending note for further details. Supervising Physician Co-Signing Physician Notes I have discussed Mr. Courtney's case with JANIE Herrera and agree with the above documentation. Although we do not have tissue diagnosis, based on markedly elevated PSA, extensive adenopathy and other findings on CT scan, he most likely has metastatic prostate cancer. He repeatedly emphasized during our conversation that he does not want to reduce his quality of life and does not want to have pain. We discussed warning signs with metastatic prostate cancer including changes in urinary or bowel continence, focal bone pain, focal weakness/numbness. We discussed the possible role for hormonal therapy with androgen deprivation, and that such therapy may improve his symptoms. During our conversation today he was not interested in this as an option. He may be more interested in hospice. If his symptoms worsen or if he develops acute neurologic changes, there may be a role for spinal MRI to evaluate for cord compression. In this case, we could revisit the discussion of androgen deprivation therapy. History of Present Illness Reason for Consultation: New prostate cancer, bilateral hydronephrosis Attending Physician: Tre Cee DO History of Present Illness 89-year-old male with a history of CVA, BERNARD, HTN, hyperlipidemia, GERD, hypothyroidism, former smoker, lower urinary tract symptoms, and colon adenoma admitted with generalized weakness worsening for the last month, decreased appetite, severe constipation, and urinary frequency and incontinence. In the ER, his laboratory work-up was significant for an elevated alkaline phosphatase at 275, mildly elevated BUN at 33, as well as mild anemia with a hemoglobin of 10.6. No leukocytosis and renal function normal. Urinalysis was normal and COVID-[address] of the head showed a 1.7 cm hypodense lesion in the left frontal lobe consistent with subacute to chronic infarct. He was admitted for further observation and work-up. Given his worsening urinary symptoms and elevated alkaline phosphatase a CT abdomen pelvis was performed and remarkable for extensive lymphadenopathy and sclerotic foci in the skeletal compatible with metastatic prostate cancer and bilateral hydronephrosis of uncertain etiology. A PSA was also obtained and found to be >1420. Urology consulted for new diagnosis of metastatic prostate cancer, bilateral hydronephrosis. CT abdomen pelvis - 1. Extensive lymphadenopathy and sclerotic foci in the skeleton compatible with metastatic prostate cancer in this patient with markedly elevated PSA. 2. Bilateral hydronephrosis/hydroureter, of uncertain etiology. Of note, the patient was recently treated for urinary tract infection. Patient examined at bedside this AM. Awake, resting in bed on arrival. No acute distress. Patient states over the past 6 months he has felt very poorly. He notes weight loss, weakness/fatigue and decreased appetite over the past 6 months. States he is mostly incontinent at baseline and wears a brief. Bladder scans have ranged from 100-200ml. Notes he was recently treated as an outpatient for suspected UTI by his PCP. Denies fevers or chills. No nausea or vomiting. Denies abdominal and flank pain at present. States he has occasional lower abdominal pain. Notes back pain with increased activity. Reports constipation issues. Patient states his primary care doctor followed him for PSA levels and digital rectal exams, but has been several years since his last. He has never followed with a urologist. He reports a family history of prostate cancer including his father and brothers. Allergies Allergy/AdvReac Type Severity Reaction Status Date / Time No Known Allergies Allergy Unknown Unverified 07/28/10 10:18 Home Medications Medication Instructions Recorded Confirmed Type aspirin 81 mg tablet 81 mg PO DAILY 11/09/21 11/09/21 History levothyroxine 50 mcg tablet 50 mcg PO QAM 11/09/21 11/09/21 History metoprolol succinate 50 mg 50 mg PO QAM 11/09/21 11/09/21 History tablet,extended release 24 hr nitrofurantoin 100 mg PO BID 11/09/21 11/09/21 History monohydrate/macrocrystals 100 mg capsule pravastatin 40 mg tablet 40 mg PO HS 11/09/21 11/09/21 History tamsulosin 0.4 mg capsule 0.8 mg PO DAILY 11/09/21 11/09/21 History Patient History Medical History Anemia, macrocytic Carotid artery stenosis Colon adenoma CVA (cerebral vascular accident) GERD (gastroesophageal reflux disease) HTN (hypertension), benign Hyperlipidemia Lower urinary tract symptoms Restless leg syndrome Rosacea Spinal stenosis Surgical History History of hernia repair History of tonsillectomy Family History Brother Cancer Multiple siblings with stomach cancer Diabetes Mother Cancer Father Prostate cancer Social History Smoking Status: Former smoker Tobacco Type: Cigarettes Hx Alcohol Use: No Hx Substance Use: No Preferred Language: Bangladeshi Communication Ability: Effective 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 Beliefs That Will Affect Care: None Current Living Situation: Spouse and Family Current Living Situation Comment: Lives at home with and daughter Other Information That Helps Us Care for You: No Feels Safe at Home: Yes Safety Concerns: Feels Safe At This Time Assistive Devices: Cane, Glasses, Hearing Aid - Bilateral and Walker Assistive Devices Comment: Hearing aids, glasses not present Review of Systems Review of Systems: All systems reviewed & are unremarkable except as noted in HPI & below Physical Exam Constitutional: no acute distress Neck: normal visual inspection Respiratory: no respiratory distress and no labored breathing Cardiovascular: Extremities: no calf tenderness Gastrointestinal (Abdomen): Inspection/Auscultation: abdomen normal to inspection Percussion/Palpation: + abdomen tender (Mild tenderness to lower quadrant with palpation) and abdomen soft; no guarding Musculoskeletal: Head/Neck/Chest: normocephalic Extremities: extremities normal to inspection Skin: Warm and dry Neurologic: awake Psychiatric: Orientation: alert, oriented x 3 and cooperative Genitourinary: no CVA tenderness Results & Data ([facility]) Vital Signs (Past 12 Hours) Vital Signs Temp Pulse Pulse Resp BP Pulse Ox 11/10/21 07:53 36.9 C 80 18 132/78 95 11/10/21 07:21 79 11/10/21 03:23 36.9 C 82 18 115/70 99 11/09/21 23:19 36.7 C 91 H 18 129/70 98 PG Care Time/CCT Total # of Minutes Spent Total Time Spent with Patient: Total time spent is greater than 50% in coordination of care (as documented) at patient's floor/unit and/or counseling patient: Coding Level of Care Code 46982 Initial Inpt Care Lvl 2 Diagnoses Elevated PSA R97.20 Prostate cancer C61 Urinary incontinence N39.498 Urinary Incontinence type: other incontinence (1) Urinary incontinence Urinary Incontinence type: other incontinence Qualified Code(s): N39.498 - Other specified urinary incontinence
--- NOTE | 2021-11-10 14:07 | Discharge Summary ---
Date of Service November 10, 2021 Admission HPI Per Admitting Provider This patient is an 89-year-old male with a history of CVA, BERNARD, HTN, hyperlipidemia, GERD, hypothyroidism, former smoker, lower urinary tract symptoms, and colon adenoma who presents to the ER with generalized weakness for the last several weeks along with worsening urinary incontinence. He was placed on amoxicillin for 5-day course as an outpatient for urinary tract infection by his PCP a few weeks ago, but had no improvement. He then called back in and was prescribed nitrofurantoin over the phone again for continued urinary symptoms. The patient's biggest complaint is severe constipation for the last month-he is only able to have a bowel movement every 5 to 6 days after taking milk of magnesia. There are times when he is straining to have a bowel movement where he has significant lower abdominal pain and gets very nauseated and feels like he will vomit. There has been no blood in the stool no black tarry stools. He also had an episode where he was standing at his bathroom sink and out of nowhere passed out and ended up on the floor. His family had to call EMS to get him back up and he refused admission at that time. He has reported some occasional heart palpitations while laying down in bed, but denies chest pains. He reports that his quality of life has been so terrible for the last month that he presumes he probably has cancer and would welcome if it came. He has not had any fevers or chills. He has had a very low appetite for the last month and is not eating much. In the ER, his laboratory work-up was significant for an elevated alkaline phosphatase at 275, mildly elevated BUN at 33, as well as mild anemia with a hemoglobin of 10.6. His urinalysis was normal and COVID-[address] of the head showed a 1.7 cm hypodense lesion in the left frontal lobe consistent with subacute to chronic infarct. A chest x-ray was normal. A troponin was negative and an ECG showed sinus rhythm with PACs and LAFB unchanged from previous. Vital signs are normal. He will be brought in on observation for further work-up for weakness and stroke, as well as for evaluation of his urinary frequency and severe constipation. Admission Exam Per Admitting Provider Constitutional: WD/WN, vitals as above Eyes: PERRL, conjunctivae normal, anicteric sclerae EOM intact bilaterally ENMT: external ear and nose normal, oropharynx normal Neck: trachea midline, no thyromegaly Respiratory: normal respiratory effort, lungs clear to auscultation Cardiovascular: RRR, no murmur, no edema Vessels: no carotid bruit Chest (Breasts): Chest: normal inspection of chest Gastrointestinal (Abdomen): normal bowel sounds, soft, nontender, no hepatosplenomegaly Musculoskeletal: Extremities: extremities normal to inspection; no cyanosis and no clubbing Skin: no rashes, warm and dry Neurologic: CN's II-XI intact bilaterally, moves all extremities and awake; + abnormal deep tendon reflexes (1+ throughout), no focal motor deficits (5/5 strength throughout) and not confused Speech / Cognition: normal speech, no expressive aphasia and normal cognition Psychiatric: A+Ox3, euthymic affect Lymphatic:L no lymphedema Principal Diagnosis Prostate Cancer with Bony Metastasis Discharge Exam Constitutional WD/WN, vitals as above Eyes PERRL, conjunctivae normal, anicteric sclerae ENMT external ear and nose normal, oropharynx normal Neck trachea midline, no thyromegaly Respiratory normal respiratory effort, lungs clear to auscultation Cardiovascular RRR, no murmur, no edema Chest (Breasts) Chest: normal inspection of chest Gastrointestinal (Abdomen) normal bowel sounds, soft, nontender, no hepatosplenomegaly mild discomfort on palpation of RLQ Skin no rashes, warm and dry Psychiatric A+Ox3, euthymic affect Discharge Data Allergies Allergy/AdvReac Type Severity Reaction Status Date / Time No Known Allergies Allergy Unknown Unverified 07/28/10 10:18 Consultations 11/09/21 13:43 ED Decision to Admit Stat 11/09/21 21:54 Consult Oncology Routine Consult Urology Routine Ordered Studies 11/09/21 12:36 CT head/brain wo con Stat 11/09/21 14:59 CT abd pelvis IV con only Urgent 11/09/21 15:17 CT angio head w con Urgent CT angio neck with con Urgent 11/09/21 17:25 MR brain wo/w con Routine Hospital Course (1) Prostate cancer: (2) Elevated PSA: (3) Constipation: (4) Weakness: (5) Dizziness: (6) Urinary incontinence: (7) HTN (hypertension), benign: (8) GERD (gastroesophageal reflux disease): (9) Hyperlipidemia: 89yo Male PMH HTN CVA urinary incontinence GERD HLD hypothyroidism carotid artery stenosis here for generalized weakness worsening for the last month, low appetite, severe constipation, and urinary frequency and incontinence. (1) Prostate Cancer with Bone Metastasis CT head/neck A/P confirm presense of diffuse body metastasis and b/l hydronephrosis. PSA 1420 Alk Phos 275. Urology and oncology consulted. Patient adamantly states he does not want to pursue chemotherapy or other forms of treatment, would prefer to go home. His biggest concern is pain management in the future when his symptoms progress. Patient agreeable to Palliative Care involvement and possible hospice after his symptoms progress. (2) Weakness: Likely 2/2 to his cancer, constipation, lack of appetite. CT head and brain MRI confirm 1.7 cm hypodensity left superior frontal lobe consistent with subacute to chronic infarct. Urinalysis negative, no fevers, COVID-19 negative. TSH normal. Negative orthostatics. HA1c lipid panel lyme B12 unremarkable. Nonfocal neurological exam (3) Constipation: Severe, ongoing for 1 month which is new for him. Associated with lower abd pain and rectal pain, nausea. Having BM q5-6 days iwth help of MOM. Significant stool burden on CT A/P. Patient understands he should start miralax 3-5 capfuls daily to encourage bowel movement, refuses miralax or enema offered in hospital, insists he is able to treat himself at home and wants to go home. (4) CVA (cerebral vascular accident): History of such affecting right sided vision. Now here with 1.7 cm left frontal lobe hypodensity on CT head representing subacute to chronic infarct. Continue home aspirin 81mg daily, atorvastatin 40mg daily (5) Lower urinary tract symptoms: Worsening for several weeks as per note from primary care physician 1 month ago. Constipation and prostate cancer likely contributory. Continue tamsulosin. Urology consulted, patient refuses additional treatment at this time. He may continue using adult daipers, states he is considering getting a bedside commode. (6) Anemia, macrocytic: Hemoglobin low at 10.6, MCV high at 100, B12 folate wnl (7) GERD (gastroesophageal reflux disease): Continue home Pepcid. No acute issues (8) HTN (hypertension), benign: Blood pressures are controlled here. Continue home metoprolol (9) Hyperlipidemia: No acute issues. Continue Atorvastatin, lipid panel wnl. Recommend high intensity statin for history of stroke (10) Carotid artery stenosis: Diagnosed after having right sided field of vision loss, CVA. Obtained CTA head neck: Severe stenosis of the proximal right internal carotid artery of greater than 95%, Moderate stenosis to severe stenosis at the origin of the right vertebral artery (11) Acquired hypothyroidism: TSH here is normal. Continue home levothyroxine Total Time Total Time Spent Total Time Spent (In Minutes): <30 Discharge Plan Discharge Items Patient Disposition: Home - Self-Care Reason For Visit: GENERALIZED WEAKNESS, STROKE, URINARY SYMPTOMS Discharge Diagnosis: Prostate Cancer with Bone Metastasis Activity: Resume your previous activity Non-emergency contact: Primary Care Provider Call non-emergency contact if: you have any medication questions, your symptoms worsen, your pain is not controlled and you have a fever Follow-up/Referrals: Jef Menezes, [Primary Care Provider] - Diet: Regular Addtl Attending Provider Instructions: You were admitted to the hospital for Weakness and worsening urinary symptoms. You were found to have Prostate Cancer with Bone Metastasis. You have declined chemotherapy and other forms of treatment, and would prefer to pursue palliative care. Please follow up with your PCP to ensure appropriate symptom management as your disease progresses. You were found to have a significant stool load due to constipation found on your abdominal imaging. This is likely contributing to your nausea, lack of appetite, and worsening urinary frequency, as your bowels press on your bladder. We recommend that you start taking at least 3 to 5 capfuls of miralax to e ncourage stool softening and bowel movement. Once your bowels are moving regularly again, we recommend daily miralax at least 2-3 capfuls a day to prevent additional constipation. A discharge summary will be sent to your primary care physician to ensure continuity of care. Please bring this discharge summary with you to your next office appointment so that your provider can review it at that time. Follow-up appointments: Make a follow-up appointment with your PCP within the next week. It is very important that you follow up with them shortly after discharge from the hospital. Keep all your follow-up appointments as already scheduled. If you cannot make an appointment, notify your provider. Medications: Your medication list has been reviewed and reconciled upon discharge to ensure accuracy and continuity of care. An updated list of all your medications is included with your hospital discharge paperwork. Please review this list closely, and make note of any changes. Take your medications as instructed; do not skip a dose of your medicines. Make sure all of your doctors know every medicine you are taking (including over-the- counter medicines, vitamins, and supplements). Call your primary care provider before taking any new medicines (including [id number] medicines, vitamins, and supplements), because some of these may interact with your current medications, or may make your symptoms worse. Tell your primary care provider if you cannot afford your medications. CONTACT YOUR PRIMARY CARE PROVIDER if you experience any of the following: Lack of appetite, nausea, no bowel movement in 1 week Fever, chills, increasing back pain Difficulty following your treatment plan, or difficulty taking medications CALL 911 OR GO TO THE EMERGENCY DEPARTMENT if you experience any of the following: Sudden, severe abdominal pain or nausea/vomiting Severe chest pain, or chest pain that radiates (moves) to your jaw or arm Sudden, severe shortness of breath or difficulty breathing Thank you for allowing us to participate in your care. Pending Studies at Discharge: No Stand-Alone Forms: My [facility], Smoking Cessation Medications and DC Order Prescriptions: Continued pravastatin 40 mg tablet 40 mg PO HS RF: 0 metoprolol succinate 50 mg tablet extended release 24 hr 50 mg PO QAM RF: 0 tamsulosin 0.4 mg capsule 0.8 mg PO DAILY RF: 0 levothyroxine 50 mcg tablet 50 mcg PO QAM RF: 0 aspirin 81 mg Tablet 81 mg PO DAILY RF: 0 Discontinued nitrofurantoin monohyd/m-cryst 100 mg capsule 100 mg PO BID RF: 0 Discharge Orders: Discharge Order (Routine); Ordered 11/10/21 Ordered By: Marcella Denson Admission Data Admit Date/Time: 11/09/21 15:14 Attending Provider: Tre Cee Admit Provider: Anitha Cole Primary Care Provider: Jef Menezes Other Providers: Anitha Cole ; Citlali Robles ; Tino Poe Other Interventions: Discharge Summary Assessment (RN) Last Done: 11/10/21 17:15 Supervising Physician Co-Signing Physician Notes I personally examined the patient and verified all shipman points of history and exam, discussed case, and agree with decision making with Dr Denson Patient seen at the same time urology was finishing discussion with him. It is very clear from [id number] discussions with the patient myself, as well as witnessing his discussion with urology, as well as discussion with heme/onc about their discussionthe patient absolutely just wants to go home and be as comfortable as he can and passes peacefully as possible. The only thing he wants treated is his constipation because it is causing abdominal pain. Vitals noted, in general he is awake and alert pleasant no distress. HEENT normocephalic atraumatic mucous membranes moist. Breathing unlabored no accessory muscle use good effort. Skin shows no rashes no pallor or icterus. Neuro without visible focal deficits, although because the demeanor of the patient encounter almost immediately shifted to a goals of care discharge planning hospice kind of a discussion admittedly a full and detailed neurologic exam was not undertaken Goals of carehe is absolutely clear, and it appears reasonable, and his family is in agreementthat he would like to go home with purely palliative goals. He initially did not see the need for hospice involvement, but whenever I discussed that with his multiple diagnoses his symptoms may evolve requiring assessment and different management, and that hospice would be able to help facilitate this more easily, then he was quite amenable. His and daughter were completely in favor for hospice basically from the moment I mentioned it. We discussed managing his acute constipationand the fact that we could keep him in the hospital to get his bowels moving to ensure that he has care and support, versus going homehe was adamant about going home, his family was a little bit more reticent, we allowed them to discuss for a few hours and Dr. Denson revisitedhe was still adamant about going home and the family was okay with honoring his wishes. ConstipationMiraLAX at significantly escalated doses to get his bowels moving, then at fairly high doses for maintenance. Incidental finding of a stroke with carotid artery diseasegiven his overall palliative goals, this becomes a secondary finding of little significance Metastatic prostate cancerhe does not want treated. Symptom control only. Stable for homehospice, PCP follow-up Resident Activity Tracking Resident Involvement: Resident Care Provided Care Provided: [facility]
--- NOTE | 2021-11-10 14:52 | Consultation Report ---
DATE OF SERVICE: 11/10/2021. REASON FOR CONSULTATION: New metastatic prostate cancer. HISTORY OF PRESENT ILLNESS: Mr. Courtney is a very pleasant 89-year-old gentleman with history of CVA, hypertension, hyperlipidemia, who presented to the ER with worsening urinary incontinence as well as generalized weakness. While in the ED, laboratory testing revealed elevated alkaline phosphatase of 275 as well as mild anemia with hemoglobin of 10.6. Given lower urinary tract symptoms, PSA was obt ained, which was significantly elevated at greater than ____. CT abdomen and pelvis on 11/09/2021 re vealed extensive lymphadenopathy and sclerotic foci in the skeleton compatible with metastatic diseas e as well as bilateral hydronephrosis/hydroureter of uncertain etiology. CTA head also obtained on a dmission revealed marked asymmetric decrease in caliber of the right internal carotid artery with cer ebral cortical atrophy and evidence for remote small vessel disease. Brain MRI on 11/09/2021 reveale d no acute infarct, old 1.7 cm left frontal lobe infarct, cerebral atrophy as well as marrow replacem ent within C2 vertebra consistent with metastatic disease. At the time of evaluating the patient nubia anthony, he indicates that he understands that he likely has metastatic prostate cancer. He is clear that he does not want any form of active treatment at this time and would like to transition to hospice. HOME MEDICATIONS: 1. Aspirin 81 mg p.o. daily. 2. Levothyroxine 50 mcg p.o. daily. 3. Metoprolol 50 mg p.o. daily. 4. Nitrofurantoin 100 mg p.o. b.i.d. 5. Pravastatin 40 mg p.o. at bedtime. 6. Tamsulosin 0.8 mg p.o. daily. ALLERGIES: No known drug allergies. PAST MEDICAL HISTORY: 1. Anemia. 2. Carotid artery stenosis. 3. CVA. 4. GERD. 5. Hypertension. 6. Hyperlipidemia. 7. Restless legs syndrome. PAST SURGICAL HISTORY: History of tonsillectomy and hernia repair. FAMILY HISTORY: Significant for gastric cancer in his twin sister as well as prostate cancer in his father. SOCIAL HISTORY: Denies smoking, alcohol, or illicit drug use. REVIEW OF SYSTEMS: Unremarkable except for weight loss and urinary incontinence. PHYSICAL EXAMINATION: VITAL SIGNS: Blood pressure 132/78, heart rate 80, respiratory rate 18, temperature 36.9, oxygen sat uration 95% on room air. CONSTITUTIONAL: Elderly gentleman in no obvious distress. EYES: No conjunctival erythema or icterus. ENT: External examination negative for masses. RESPIRATORY: Lung sounds were generally clear bilaterally. CARDIOVASCULAR: Heart has regular rate and rhythm without significant murmur, gallops, or rubs. GASTROINTESTINAL: No palpable hepatosplenomegaly. ABDOMEN: Soft with normal bowel sounds. LYMPHATIC SYSTEM: No palpable peripheral lymphadenopathy. EXTREMITIES: Negative for edema or erythema. LABORATORY DATA: CBC significant for white cell count of 4.65, hemoglobin of 9.4, hematocrit of 29.8 with MCV of 98.7, platelet count of 180,000. Chemistry significant for sodium of 137, potassium 4.2 , chloride 106, carbon dioxide 24, alkaline phosphatase of 250. PSA of ____. BUN of 29 and creatini ne of 1.08. IMAGING STUDIES: CT abdomen and pelvis on 11/09/2021, impression: 1. Extensive lymphadenopathy and sclerotic foci in the skeleton compatible with metastatic prostate cancer. 2. Bilateral hydronephrosis/hydroureter. ASSESSMENT AND PLAN: Probable widely metastatic prostate cancer. A very pleasant elderly gentleman who presented with fatigue and weight loss. Imaging studies are hi ghly suggestive of metastatic prostate cancer with PSA also significantly elevated. Based on clinica l symptoms, imaging and laboratories, he most likely has metastatic prostate cancer. Discussed optio ns of treatment with the patient including complete androgen blockade with antiandrogen ____ as well as GnRH agonist. Given his advanced age, we would not recommend IV chemotherapy, but he would benefi t from a combination of degarelix and Casodex. I discussed these options with the patient and explai axel to him that this would improve his clinical symptoms and would most likely prolong life. Followi ng our discussion, patient indicated that he would absolutely not want any form of treatment for his prostate cancer. He states that he has lived a good life and would like to pass away peacefully. Ba sed on this, we would recommend evaluation by palliative care/hospice to discuss further with the derick velasquez. Thank you for this consult. Oncology will not schedule further followup at this time. Please feel f ree to call if you have any other questions. Job ID: [id number]
--- NOTE | 2021-11-10 17:28 | Billing Data ---
Date of Service November 10, 2021 Coding Level of Care Code 39771 OBS Care - Discharge
== END 2021-11-10 17:39 | disposition home or self-care (01) ==
LOC: ED 10:38 → 2N 10:38 → SUATTDRO 15:14 → 2N 16:45